=== PATIENT | male | born 1980 | race Caucasian/White ===

== ENCOUNTER 2020-06-06 23:31 | Emergency (ER) | payer MEDICARE, MEDICAID ==
[2020-06-06 23:40] VITALS: BP 148/91
--- NOTE | 2020-06-06 23:53 | ER Document Report ---
ED Medical Screen (RME) - General Chief Complaint: Bloody Stools Stated Complaint: BLOOD IN STOOLS Time Seen by Provider: 06/06/20 23:39 Notes: Patient is a 39-year-old male who presents emergency department with a chief complaint of blood in his stool. Patient states that a few days ago he had bright red blood in the toilet. He states that it went away. He then went to go to the bathroom today and ended up having another episode of blood in his stool. States that the whole toilet bowl was full of blood. Denies any history of hemorrhoids in the past. Denies constipation. Denies any pain. Exam: Soft, nontender abdomen. I have greeted and performed a rapid initial assessment of this patient. A comprehensive ED assessment and evaluation of the patient, analysis of test results and completion of medical decision making process will be conducted by an additional ED providers. - Related Data Allergies/Adverse Reactions: carbamazepine [From Tegretol] Allergy (Verified 06/06/20 23:46) Home Medications: Prilosec. Diavox Past Medical History - Social History Chew tobacco use (# tins/day): No Frequency of alcohol use: None Drug Abuse: None Physical Exam - Vital signs Vitals: Temp Pulse Resp BP Pulse Ox 97.7 F 85 20 148/91 H 98 06/06/20 23:37 06/06/20 23:37 06/06/20 23:37 06/06/20 23:37 06/06/20 23:37 Course - Vital Signs Vital signs: Temp Pulse Resp BP Pulse Ox 97.7 F 85 20 148/91 H 98 06/06/20 23:37 06/06/20 23:37 06/06/20 23:37 06/06/20 23:37 06/06/20 23:37
[2020-06-07 00:52] LABS: ABSOLUTE BASOPHILS # (AUTO) 0.1 10^3/uL (0.0-0.2); ABSOLUTE EOSINOPHILS # (AUTO) 0.3 10^3/uL (0.0-0.6); ABSOLUTE LYMPHOCYTES (AUTO) 3.5 10^3/uL (0.5-4.7); ABSOLUTE MONOCYTES (AUTO) 0.6 10^3/uL (0.1-1.4); ABSOLUTE NEUT (AUTO) 3.7 10^3/uL (1.7-8.2); BASOPHILS % (AUTO) 0.8 % (0-2); EOSINOPHILS % (AUTO) 3.7 % (0-6); HEMATOCRIT 46.6 % (37.9-51.0); HEMOGLOBIN 16.8 g/dL (13.5-17.0); LYMPHOCYTES % (AUTO) 42.6 % (13-45); MEAN CORPUSCULAR HEMOGLOBIN 33.6 pg (27.0-33.4); MEAN CORPUSCULAR HGB CONC 36.1 g/dL (32.0-36.0); MEAN CORPUSCULAR VOLUME 93 fl (80-97); MONOCYTES % (AUTO) 7.8 % (3-13); PLATELET COUNT 202 10^3/uL (150-450); RED CELL DISTRIBUTION WIDTH 13.4 % (11.5-14.0); SEGMENTED NEUTROPHILS % (AUTO) 45.1 % (42-78); TOTAL CELLS COUNTED % (AUTO) 100 %; WHITE BLOOD COUNT 8.2 10^3/uL (4.0-10.5)
[2020-06-07 01:06] LABS: ANION GAP 9 (5-19); BLOOD UREA NITROGEN 18 mg/dL (7-20); CALCIUM 9.2 mg/dL (8.4-10.2); CARBON DIOXIDE 20 mmol/L (22-30); CHLORIDE 112 mmol/L (98-107); GLUCOSE 89 mg/dL (75-110)
[2020-06-07 01:08] LABS: POTASSIUM 3.7 mmol/L (3.6-5.0)
--- NOTE | 2020-06-07 01:44 | ER Document Report ---
ED General - General Chief Complaint: Bloody Stools Stated Complaint: BLOOD IN STOOLS Time Seen by Provider: 06/06/20 23:39 Primary Care Provider: MARCUS AMTA MD [HONORARY] - Follow up as needed - HPI Quality of pain: Sharp Severity: Severe Pain Level: 4 Context: 39-year-old male presents complaining of rectal pain and bleeding. Patient states symptoms started 2 days ago. Patient states that he has no prior history of hemorrhoids. Patient states he has been checking his symptoms on [employer] and is worried that he might have colon cancer. Patient denies any type of significant weight loss over the past several weeks or months. Patient states that he sometimes has no blood with bowel movements and then sometimes the toilet water turns bright red after a bowel movement. Patient also notes that he sees bright red blood on toilet paper when he wipes. Patient states that his anal area is painful. Patient states that the pain is exacerbated at times with wiping and sometimes with bowel movements. Patient states he is used [id number] hemorrhoid cream without relief of symptoms. Patient states he is willing to have a visual examination of his anal region but states that he will not "have a finger stuck up" his anal region. This MD tried to reassure the patient that his wishes would be monitored. Patient is not on any blood thinners. Patient denies prior hemorrhoid history. Patient states he has hard stools that are brown at times but nothing that has been so painful the past that he might of had a anal fissure. Patient denies family history of colon cancer. Associated symptoms: Other - See HPI Exacerbated by: Other - See HPI Relieved by: Other - See HPI Similar symptoms previously: No - Related Data Allergies/Adverse Reactions: carbamazepine [From Tegretol] Allergy (Verified 06/06/20 23:46) Home Medications: Prilosec. Diavox Past Medical History - General Information source: Patient - Social History Smoking Status: Current Every Day Smoker Chew tobacco use (# tins/day): No Frequency of alcohol use: None Drug Abuse: None Family History: Reviewed & Not Pertinent Patient has suicidal ideation: No Patient has homicidal ideation: No Review of Systems - Review of Systems Constitutional: No symptoms reported EENT: No symptoms reported Cardiovascular: No symptoms reported Respiratory: No symptoms reported Gastrointestinal: Rectal bleeding, Other - Anal pain Genitourinary: No symptoms reported Male Genitourinary: No symptoms reported Musculoskeletal: No symptoms reported Skin: No symptoms reported Hematologic/Lymphatic: No symptoms reported Neurological/Psychological: No symptoms reported -: Yes All other systems reviewed and negative Physical Exam - Vital signs Vitals: Temp Pulse Resp BP Pulse Ox 97.7 F 85 20 148/91 H 98 06/06/20 23:37 06/06/20 23:37 06/06/20 23:37 06/06/20 23:37 06/06/20 23:37 - Notes Notes: CONSTITUTIONAL [Vital signs reviewed, Patient appears comfortable, Alert and oriented X 3, Normal stature.] HEAD [Atraumatic, Normocephalic.] EYES [Eyes are normal to inspection, No discharge from eyes, Extraocular muscles intact, Sclera are normal, Conjunctiva are normal.] NECK [Normal ROM, No jugular venous distention, No meningeal signs, no carotid bruit.] RESPIRATORY CHEST [Chest is nontender, Breath sounds normal, No respiratory distress.] CARDIOVASCULAR [RRR, No murmurs, Normal S1 S2, No rub, No gallop.] ABDOMEN [Abdomen is nontender, No pulsatile masses, No other masses, Bowel sounds normal, No distension, No peritoneal signs, No hernias.] Rectal Anal region is extremely tender to palpation. Patient resists repeated instructions to attempt to relax while spreading his gluteal area open to better visualize his anal region. There is no obvious evidence of any type of abscess. Patient has a region of erythema, edema and tenderness between the 12 and 2:00 region. No obvious anal fissure is appreciated. No bleeding is noted. The region that is erythematous and swollen has an appearance consistent with a non- thrombosed external hemorrhoid. BACK [There is no CVA Tenderness, There is no tenderness to palpation, Normal inspec tion.] UPPER EXTREMITY [Inspection normal, No cyanosis, No clubbing, No edema, 2+ radial pulses.] LOWER EXTREMITY [Inspection normal, No cyanosis, No clubbing, No edema, No calf tenderness, 2+ femoral pulses.] NEURO [No focal motor deficits, No focal sensory deficits, Speech normal.] SKIN [Skin is warm, Skin is dry, Skin is normal color.] LYMPHATIC [No adenopathy in neck.] PSYCHIATRIC [Normal affect. ] Course - Re-evaluation Re-evalutation: 06/07/20 01:59 Results of ED MSE discussed with patient. All questions were answered prior to discharge. Patient was informed that the annual exam was somewhat suboptimal secondary to patient's reluctance to cooperate and pain during attempt to visualize region. Differential diagnoses were discussed with patient; #1 being most likely a hemorrhoid and #2 being a anal fissure. The plan for treatment was discussed with the patient. Topical steroid cream and stool softener will be prescribed to the patient. All questions were answered prior to discharge. Emergency signs and symptoms, reasons to return to the emergency department discussed with patient. - Vital Signs Vital signs: Temp Pulse Resp BP Pulse Ox 97.7 F 85 20 148/91 H 98 06/06/20 23:37 06/06/20 23:37 06/06/20 23:37 06/06/20 23:37 06/06/20 23:37 - Laboratory Result Diagrams: 06/07/20 00:20 06/07/20 00:20 Laboratory results interpreted by me: 06/07/20 06/07/20 00:20 00:20 MCH 33.6 H MCHC 36.1 H Chloride 112 H Carbon Dioxide 20 L Discharge - Discharge Clinical Impression: Hemorrhoids Qualifiers: Hemorrhoid type: unspecified Qualified Code(s): K64.9 - Unspecified hemorrhoids Condition: Stable Disposition: HOME, SELF-CARE Additional Instructions: Return to the Emergency Department without delay if any worse. Use Sunil Wipes as discussed. HOME CARE INSTRUCTIONS & INFORMATION: Thank you for choosing us for your medical needs. We hope you're satisfied with the care you received. After you leave, you must properly care for your problem and, at the same time, observe its progress. Any condition can change. Some illnesses can change rapidly over hours or days. If your condition worsens, return to the Emergency Department or see your physician promptly. ABOUT YOUR X-RAYS AND EKG'S: If you had an EKG or X-rays taken, they have been read by the Emergency Physician. The X-rays and EKG's will also be read by a Radiologist or Search Manager within 24 hours. If discrepancies are noted, you will be notified by telephone. Please be certain the ED has a correct telephone number & address where you can be reached. Also, realize that some fractures or abnormalities do not show up on initial X-rays. If your symptoms continue, see your physician. ABOUT YOUR LABORATORY TEST: If you had laboratory tests, the results have been reviewed by the Emergency Physician. Some test results (for example cultures) may not be available for several days. You will be contacted if any test result shows you need additional treatment. Please be certain the ED has a correct telephone number and address where you can be reached. ABOUT YOUR MEDICATIONS: You will receive instructions on how to take your medicine on the prescription label you receive. Additional information may be provided by the Pharmacy. If you have questions afterwards, call the ED for clarification or further instructions. Some prescribed medications may cause drowsiness. Do not perform tasks such as driving a car or operating machinery without consulting your Pharmacist. If you feel you need a refill of pain medication, your condition will need re-evaluation. Please do not call for a refill of any medication. ABOUT YOUR SIGNATURE: Signature of this document acknowledges to followin. Understanding that you received emergency treatment and that you may be released before al medical problems are known or treated. Please be certain the ED has a correct phone number & address where you can be reached. 2. Acknowledgement that you will arrange for follow-up care as recommended. 3. Authorization for the Emergency Physician to provide information to your follow-up Physician in order to maximize your care. AT ANY TIME, IF YOUR SYMPTOMS CHANGE SIGNIFICANTLY OR WORSEN OR YOU DEVELOP NEW SYMPTOMS, RETURN TO THE EMERGENCY DEPARTMENT IMMEDIATELY FOR RE-EVALUATION. OUR GOAL IS TO PROVIDE EXCELLENT MEDICAL CARE! WE HOPE THAT WE HAVE MET YOUR EXPECTATIONS DURING YOUR EMERGENCY DEPARTMENT VISIT AND THAT YOU FEEL YOU HAVE RECEIVED EXCELLENT CARE! Anal Fissure You have a split in the tissues of the anus, called an anal fissure. This may be due to constipation, or chronic anal irritation. The fissure causes pain during bowel movements. It may bleed when you pass stool. Treat the fissure with warm sitz baths three or four times a day. Clean the anal area carefully -- special cleansing pads (Tucks) may be helpful. Sometimes prescription suppositories are helpful in reducing pain and inflammation. A stool softener (such as Metamucil) will make bowel movements less traumatic. Eat a diet high in fiber (fruits, whole grains), and drink plenty of water. See your doctor if there is profuse bleeding, increasing pain, an enlarging mass, or fever -- or if the symptoms do not resolve after treatment. Hemorrhoids You have hemorrhoids. These are formed by enlargement of veins around the anus. The cause is increased pressure in the veins, from or straining at bowel movements. Hemorrhoids often cause itching and bleeding with bowel movements. When a hemorrhoid becomes clotted, severe pain and swelling result. Soothing creams and suppositories are often prescribed. Warm sitz-baths may also decrease pain, swelling, and itching. Eat a high-fiber diet. Stool softeners such as Metamucil will help. Keep the area very clean. Medicated cleansing pads (such as Tucks) are useful after bowel movements. A hose-mounted shower unit (like a shower massager at low water pressure) can be used to clean around tender hemorrhoid tags. You should call the doctor or return if you develop fever, increasing pain, or an enlarging mass around the anus, or if you simply fail to improve with treatment. Prescriptions: Triamcinolone Acetonide [Aristocort 0.1% Cream] 1 applic TP TID 10 Days #30 g Docusate Sodium [Colace 100 mg Capsule] 100 mg PO BID 10 Days #20 capsule Referrals: MARCUS MATA MD [HONORARY] - Follow up as needed
== END 2020-06-07 01:54 | disposition home or self-care (01) ==
LOC: EDBD 23:31 → ER 23:31
DX: K64.9 Unspecified hemorrhoids (principal); K60.2 Anal fissure, unspecified; K92.1 Melena; F17.200 Nicotine dependence, unspecified, uncomplicated
CPT/HCPCS: 36415; 80048; 85025; 99283